=== PATIENT | male | born 1985 | race Two or more races ===

== ENCOUNTER 2018-02-18 07:50 | Day surgery (SDC) | payer OTHER | END 2018-02-18 13:50 | disposition home or self-care (01) | LOC: AMB-ENDOS 07:50 → CIR.AMB 13:45 → EDSEX 13:45 → AMB-ENDOS 13:45 | DX: D12.8 Benign neoplasm of rectum (principal); K57.30 Diverticulosis of large intestine without perforation or abscess without bleeding; K64.8 Other hemorrhoids ==